=== PATIENT | female | born 1955 | race Caucasian/White ===

== ENCOUNTER → 2023-10-30 11:48 | Outpatient (REF) | payer MEDICARE, OTHER, SELFPAY | LOC: WDC 11:48 | PROVIDERS: ATTENDING PHYSICIAN Obstetrics & Gynecology; FAMILY PHYSICIAN Nurse Practitioner Primary Care | DX: Z12.31 Encounter for screening mammogram for malignant neoplasm of breast (principal) | CPT/HCPCS: 77063; 77067 ==

== ENCOUNTER → 2024-10-31 12:06 | Outpatient (REF) | payer MEDICARE, OTHER, SELFPAY | LOC: WDC 12:06 | PROVIDERS: ATTENDING PHYSICIAN Nurse Practitioner Primary Care | DX: Z12.31 Encounter for screening mammogram for malignant neoplasm of breast (principal) | CPT/HCPCS: 77063; 77067 ==

== ENCOUNTER → 2024-11-28 14:35 | Outpatient (REF) | payer MEDICARE, OTHER, SELFPAY | LOC: HWRAD 14:35 | PROVIDERS: ATTENDING PHYSICIAN Nurse Practitioner Primary Care; REFERRING PHYSICIAN Obstetrics & Gynecology | DX: N39.0 Urinary tract infection, site not specified (principal) | CPT/HCPCS: 76770 ==

== ENCOUNTER 2025-02-23 06:14 | Day surgery (SDC) | payer MEDICARE, OTHER, SELFPAY ==
--- NOTE | 2025-02-02 12:46 | CM ---
CM reviewed medical records. Patient lives independently with who will be her support post operatively. Patient is active with her PCP. Patient has made her outpatient PT appointments. Patient has a walker and will inquire with Mateo at [facility]
for further equipment.
[place] updated that [facility] will [facility] calling patient to discuss home care options.
PLAN: home, SDS, VN
[2025-02-04 14:12] VITALS: BMI 30.3
[2025-02-04 14:37] LABS: Hematocrit 41.0 % (37.0-47.0); Hemoglobin 13.4 g/dL (12.0-16.0); Mean Corp Hgb Conc. 32.7 g/dL (33.0-37.0); Mean Corpuscular Volume 90.9 fL (81.0-99.0); Platelet Count 239 10^3/uL (130-400); Red Cell Dist. Width 12.9 % (11.5-14.5)
[2025-02-04 15:30] LABS: ALT (SGPT) 39 U/L (0-35); AST (SGOT) 23 U/L (14-36); Albumin 4.0 g/dl (3.5-5.0); Alkaline Phosphatase 94 U/L (38-126); Blood Urea Nitrogen 20 mg/dl (7-17); Calcium 10.1 mg/dl (8.4-10.2); Carbon Dioxide 28 mmol/L (22-30); Chloride 104 mmol/L (98-107); Estimated Creatinine Clearance 79 ml/min; Glucose 75 mg/dl (70-99); Potassium 4.8 mmol/L (3.5-5.1); Sodium 136 mmol/L (135-145); Total Protein 6.3 g/dl (6.3-8.2); eGFR > 60.00
[2025-02-05 08:50] LABS: Glycohemoglobin (HgbA1c) 5.1 % (4.0-5.6)
--- NOTE | 2025-02-09 14:45 | VNURNOTE ---
Patient is scheduled for an elective L TKA on 02/23 - she is a same day patient with Dr Horowitz. Spoke with patient prior to surgery. Introduced role of [facility] Liaison. Patient reports that she lives with her spouse.
She has a handicap accessible bathroom on the first floor. She has a shower chair and rolling walker.
She is familiar with [facility] services.
PCP is Alisia Ferrell
Discussed [facility] joint protocol and post surgical plans.
Reviewed that she will have VN services initially and will then start outpatient PT.
Patient selects [facility] for her home care needs and will go to [facility] for outpatient PT. Scheduled for 02/26.
Patient is in agreement with plan and states that her spouse will be home with her post op. Advised to bring RW with her day of surgery. Referral placed in [facility].
Plan: [facility] per [facility] joint protocol 02/23 then outpt PT on 02/26.
[2025-02-13 08:47] VITALS: BMI 30.3
[2025-02-23] VITALS (13 sets, daily range): BP systolic 103–137; BP diastolic 41–77; BMI 30.3
--- NOTE | 2025-02-23 08:12 | W.DS.TRANS ---
DC Summary - Pack Worker
-
Discharge Instructions:
Discharge Diagnosis/Procedures L TKA Dr. Horowitz 02/23/25
Diet Diabetic, Carb Controlled
Activity With Walker
Driving Restrictions No driving
Bathing Restrictions OK to Shower
Other Services PT
Instructions:
Stand-Alone Forms: [facility] Total Hip and Knee D/C
Changes to Home Medications: Yes
Discharge Medications:
DC Medications w/original date entered in [facility]
atorvastatin 40 mg tablet 80 mg PO QPM 07/12/15
metoprolol succinate 50 mg tablet,extended release 24 hr 50 mg PO HS 07/12/15
fexofenadine 60 mg tablet 60 mg PO DAILY 07/27/23
pantoprazole 40 mg tablet,delayed release 20 mg PO DAILY 07/27/23
tirzepatide 10 mg/0.5 mL subcutaneous pen injector (Mounjaro) 12.5 mg SC TH 07/27/23
estradiol 0.01% (0.1 mg/gram) vaginal cream 1 appful vaginal SUTH 02/03/25
fluticasone propionate 50 mcg/actuation nasal spray,suspension 1 spray intranasal DAILY 02/03/25
multivitamin 1 tab PO DAILY 02/03/25
sodium chloride 0.65 % nasal spray aerosol (Saline Mist) 1 spray intranasal ONCE 02/03/25
cefadroxil 500 mg capsule 500 mg PO BID #14 caps 02/04/25
celecoxib 200 mg capsule (Celebrex) 200 mg PO DAILY Anti-inflammatory #14 caps 02/04/25
cranberry fruit concentrate 130 mg capsule (GennaMD) 130 mg PO DAILY 02/04/25
Held on 02/23/25. Instructions: Resume on 03/03/25.
gabapentin 300 mg capsule 300 mg PO HS neuropathic pain/sleep #10 caps 02/04/25
mupirocin 2 % topical ointment 1 applic intranasal BID #1 tube 02/04/25
ondansetron HCl 4 mg tablet 4 mg PO Q6H PRN nausea and vomiting #30 tabs 02/04/25
oxycodone 5 mg tablet 5 - 10 mg (1 - 2 x 5 mg) PO Q6H PRN moderate-severe pain #30 tabs 02/04/25
Saccharomyces boulardii 250 mg capsule (Florastor) 250 mg PO BID #1 cap 02/22/25
aspirin 325 mg tablet 325 mg PO DAILY blood clot prevention #1 tab 02/22/25
magnesium hydroxide 400 mg/5 mL oral suspension (Milk of Magnesia) 30 ml PO HS PRN constipation #1 mL 02/22/25
sennosides 8.6 mg tablet (Senokot) 17.2 mg (2 x 8.6 mg) PO BID laxative #2 tabs 02/22/25
acetaminophen 500 mg tablet 1,000 mg (2 x 500 mg) PO QID #0 tabs 02/23/25
docusate sodium 100 mg capsule (Dulcolax Stool Softener (docusate)) 200 mg (2 x 100 mg) PO BID #0 caps 02/23/25
lisinopril 10 mg tablet 20 mg (2 x 10 mg) PO HS #0 tabs 02/23/25
Home Medication Changes
cefadroxil 500 mg capsule 500 mg PO BID #14 caps 02/04/25
celecoxib 200 mg capsule (Celebrex) 200 mg PO DAILY Anti-inflammatory #14 caps 02/04/25
Held on 02/23/25. Instructions: Resume on 03/03/25.
gabapentin 300 mg capsule 300 mg PO HS neuropathic pain/sleep #10 caps 02/04/25
mupirocin 2 % topical ointment 1 applic intranasal BID #1 tube 02/04/25
ondansetron HCl 4 mg tablet 4 mg PO Q6H PRN nausea and vomiting #30 tabs 02/04/25
oxycodone 5 mg tablet 5 - 10 mg (1 - 2 x 5 mg) PO Q6H PRN moderate-severe pain #30 tabs 02/04/25
Saccharomyces boulardii 250 mg capsule (Florastor) 250 mg PO BID #1 cap 02/22/25
aspirin 325 mg tablet 325 mg PO DAILY blood clot prevention #1 tab 02/22/25
magnesium hydroxide 400 mg/5 mL oral suspension (Milk of Magnesia) 30 ml PO HS PRN constipation #1 mL 02/22/25
sennosides 8.6 mg tablet (Senokot) 17.2 mg (2 x 8.6 mg) PO BID laxative #2 tabs 02/22/25
acetaminophen 500 mg tablet 1,000 mg (2 x 500 mg) PO QID #0 tabs 02/23/25
docusate sodium 100 mg capsule (Dulcolax Stool Softener (docusate)) 200 mg (2 x 100 mg) PO BID #0 caps 02/23/25
Pending Results: No
[2025-02-23 08:19] LABS: Glucose - Point of Care 86 mg/dl (70-99)
[2025-02-23] MEDS: TYLENOL 650 MG PO (08:20)
[2025-02-23] MEDS: CELEBREX 200 MG PO (08:20)
[2025-02-23] MEDS: NORMOSOL-R/PLASMALYTE-A 1000 IV (08:20)
[2025-02-23] MEDS: CYKLOKAPRON 650 MG PO (12:56)
[2025-02-23] MEDS: ANCEF 5 IV (13:48)
== END 2025-02-23 15:11 | disposition home or self-care (01) ==
LOC: SDS 06:14
PROVIDERS: ATTENDING PHYSICIAN Specialist; FAMILY PHYSICIAN Nurse Practitioner Primary Care; OTHER PHYSICIAN Physician Assistant; REFERRING PHYSICIAN Internal Medicine Cardiovascular Disease
DX: M17.12 Unilateral primary osteoarthritis, left knee (principal); E66.9 Obesity, unspecified; Z68.30 Body mass index [BMI] 30.0-30.9, adult; I25.10 Atherosclerotic heart disease of native coronary artery without angina pectoris; Z87.891 Personal history of nicotine dependence
CPT/HCPCS: 27447; 36415; 73560; 80053; 82962; 83036; 85027; 87070; 97162; C1713; C1776

== ENCOUNTER 2025-04-06 06:02 | Day surgery (SDC) | payer MEDICARE, OTHER, SELFPAY ==
[2025-04-06] VITALS (10 sets, daily range): BP systolic 114–153; BP diastolic 49–97; BMI 34.4
[2025-04-06] MEDS: CELEBREX 200 MG PO (08:00)
[2025-04-06] MEDS: TYLENOL 1000 MG PO (08:00)
[2025-04-06 08:03] LABS: Glucose - Point of Care 88 mg/dl (70-99)
[2025-04-06] MEDS: NORMOSOL-R/PLASMALYTE-A 1000 IV (08:04)
[2025-04-06] MEDS: DILAUDID 0.25 MG IV ×2 (09:22→09:31)
[2025-04-06 09:38] LABS: Glucose - Point of Care 84 mg/dl (70-99)
== END 2025-04-06 11:40 | disposition home or self-care (01) ==
LOC: SDS 06:02
PROVIDERS: ATTENDING PHYSICIAN Specialist
DX: T84.89XA Other specified complication of internal orthopedic prosthetic devices, implants and grafts, initial encounter (principal); M25.662 Stiffness of left knee, not elsewhere classified; M76.892 Other specified enthesopathies of left lower limb, excluding foot; Y79.2 Prosthetic and other implants, materials and accessory orthopedic devices associated with adverse incidents; Z96.652 Presence of left artificial knee joint; E66.9 Obesity, unspecified; Z68.30 Body mass index [BMI] 30.0-30.9, adult
CPT/HCPCS: 27570; 82962